=== PATIENT | female | born 1945 | race Caucasian/White ===

== ENCOUNTER 2016-10-24 07:55 | Day surgery (SDC) | payer MEDICARE ==
--- NOTE | 2016-10-21 07:25 | HP ---
PREOPERATIVE HISTORY AND PHYSICAL: DATE OF SURGERY/ADMISSION: 10/24/16 [facility] PROCEDURE: Right wrist carpal tunnel release. CHIEF COMPLAINT: Numbness and tingling in the right hand. HISTORY OF PRESENT ILLNESS: This is a 71-year-old female who had a right carpal tunnel release done in the past. During the past, she had complete relief of her symptoms, but in July she started having an increase in her symptoms again. She has been working part-time at [employer] and does a lot of heavy lifting of water and bags of dog food and feels like this is exacerbating her symptoms. Her hand is very sensitive to the touch. She has tried using a brace, which does help some but does not fully alleviate her symptoms. She does not recall any specific injury to this hand or wrist. She has recently had a nerve conduction study, which showed recurrent carpal tunnel syndrome of moderate degree on the right. The patient is interested in pursuing surgical intervention at this time in the form of a repeat right wrist carpal tunnel release. PAST MEDICAL HISTORY: 1. Diabetes. 2. Hypertension. PAST SURGICAL HISTORY: Right carpal tunnel release. MEDICATIONS: 1. Vitamin B6 natural 1 tab daily. 2. Metformin HCl 500 mg 2 tabs b.i.d. 3. Mobic 15 mg daily. 4. Potassium gluconate 1 tab daily. 5. Toprol-XL 100 mg daily. 6. Vitamin E 1 tab daily. ALLERGIES: BACTRIM and FUROSEMIDE each causes hives. FAMILY MEDICAL HISTORY: Diabetes, Alzheimer's, heart disease. SOCIAL HISTORY: The patient is employed part-time at [employer]. She quit smoking in November 2015, prior to that she was smoking 3 to 4 cigarettes per day for several years. She denies recreational drug use. She does admit to alcohol use on rare occasion. REVIEW OF SYSTEMS: General: Negative for fevers, chills, or night sweats. No known anesthesia problems. HEENT: Negative for headache, lightheadedness, or syncopal episodes. Integumentary: Negative for abrasions, lesions, or open wounds. Cardiothoracic: Negative for chest pain, palpitations, or edema. Positive for hypertension. Pulmonary: Negative for shortness of breath with exertion, chronic cough or COPD. GI: Negative for nausea, vomiting, diarrhea, constipation or GERD. : Negative for nocturia, urinary frequency, urgency, history of UTIs, or kidney problems. Musculoskeletal: Positive for current complaint. Negative for chronic or intermittent back pain. History of fractures. Neurological: Positive for tingling and numbness in the median nerve distribution right hand. Negative for history of seizure, stroke or epilepsy. Endocrine: Positive for diabetes. Negative for thyroid issues. Hematologic: Negative for easy bruising, anemia, excessive bleeding, or history of DVT. Infectious Disease: Negative for history of MRSA, hepatitic C , or HIV. PHYSICAL EXAMINATION GENERAL: A well-developed, well-nourished 71-year-old female, in no acute distress. VITAL SIGNS: Height 5 feet 4.5 inches, weight 191 pounds. Pulse rate 68, blood pressure 138/68. HEENT: Normocephalic, atraumatic. Pupils are equal, round, and reactive to light and accommodation. Extraocular movements are intact. NECK: Supple. No palpable lymph nodes. Throat is clear. PULMONARY: Lungs are clear to auscultation bilaterally. No wheezes, rales, or rhonchi. CARDIOVASCULAR: Regular rate and rhythm. S1 and S2. No murmurs, rubs, or gallops. No edema. ABDOMEN: Positive bowel sounds. Soft, nontender. NEUROLOGIC: Alert and oriented x3. Cranial nerves II through XII are intact. MUSCULOSKELETAL: On exam of the right hand, she has a positive Tinel's sign at the median nerve and some mild thenar wasting. Decreased strength with some abduction. She is very sensitive in the palm of her hand to light touch. She can flex and extend her fingers well. IMAGING STUDIES: EMG nerve conduction study shows moderate carpal tunnel syndrome on the right. ASSESSMENT: Recurrent carpal tunnel syndrome on the right. PLAN: The patient is scheduled to undergo a right wrist carpal tunnel release with Dr. Bullock on 10/24/16. She will return to the office 10 to 14 postop for followup and suture removal. A prescription for Ultracet was e-scribed to the patient's pharmacy for postoperative pain management. FRANKIE DOUGLAS [id number]/[facility] #: [id number] JULIANNA
[~2016-10-24 07:55] MED LIST: Buffered Lidocaine 1% SYR 3ML* 3 ML/SYR SYRINGE INTRADERM ONE
[2016-10-24] MEDS ORDERED: Lidocaine 1% INJ* 10 MG/ML 30 ML SDV ONE (07:58)
[2016-10-24] MEDS ORDERED: Propofol* 10 MG/ML 20 ML BTL IV PUSH ONE (09:15)
[2016-10-24] MEDS ORDERED: Midazolam* 1 MG/ML 2 ML VIAL (2 MG) ONE (09:15)
[2016-10-24] MEDS ORDERED: fentaNYL* 50 MCG/ML 2 ML VIAL (100 MCG VIAL) ONE (09:15)
[2016-10-24 09:54] VITALS: BP 135/65
--- NOTE | 2016-10-25 00:42 | OP ---
DATE OF OPERATION: 10/24/16 [facility] DATE OF : 49 SURGEON: Margie Bullock MD PATHOLOGY LABORATORY AIDES TEACHER: FRANKIE Zelaya ANESTHESIOLOGIST: Rodney Faustin MD ANESTHESIA: Local MAC. PRE-OP DIAGNOSIS: Right carpal tunnel syndrome, recurrent. POST-OP DIAGNOSIS: Right carpal tunnel syndrome, recurrent. OPERATIVE PROCEDURE: Right carpal tunnel release. ESTIMATED BLOOD LOSS: Zero. TOURNIQUET TIME: 8 minutes. INDICATIONS: Elaine is a 71-year-old female with numbness and tingling in the median nerve distribution of her right hand. She had a carpal tunnel release many, many years ago. Symptoms have returned. She presents for right carpal tunnel release. DESCRIPTION OF PROCEDURE: The patient was brought to the operating room, was given a sedation anesthetic and a local infiltration of 10 cc of 1% plain lidocaine in the palm of her right hand. The skin of her right hand and forearm was prepped and draped in the usual sterile fashion. The hand and forearm were exsanguinated and the tourniquet elevated to 250 mmHg. A longitudinal incision was made in the palm in line with the ring finger. We dissected through the subcutaneous tissue down to the transverse carpal ligament. The ligament was divided sharply with a knife and then more proximally with the scissors. The nerve was carefully dissected away from the surrounding tissue. It was somewhat adherent to the undersurface of the transverse carpal ligament, was carefully dissected and completely freed up. The wound was irrigated and skin edges were reapproximated with 4-0 nylon suture. The wound was dressed with Xeroform, 4x4, Webril, and an Chet wrap. The patient tolerated the procedure well, was brought to the recovery room in good condition. [id number]/[facility] #: [id number] MTDD
== END 2016-10-24 10:18 | disposition home or self-care (01) ==
LOC: OREAST 07:55
PROVIDERS: ATTEND Orthopaedic Surgery
DX: G56.01 Carpal tunnel syndrome, right upper limb (principal); I10 Essential (primary) hypertension; E11.9 Type 2 diabetes mellitus without complications; Z87.891 Personal history of nicotine dependence
CPT/HCPCS: J2250; J2704; J3010

== ENCOUNTER 2016-12-16 09:42 | Day surgery (SDC) | payer MEDICARE ==
--- NOTE | 2016-12-08 19:27 | HP ---
PREOPERATIVE HISTORY AND PHYSICAL: DATE OF ADMISSION/SURGERY: 12/16/16 DATE OF OFFICE VISIT/ENCOUNTER: 12/04/16 ATTENDING SURGEON: Margie Bullock MD PROCEDURE: Left wrist carpal tunnel release. CHIEF COMPLAINT: Numbness and tingling, left hand. HISTORY OF PRESENT ILLNESS: This is a 71-year-old female who had a left carpal tunnel release done in the past. She did have complete relief of her symptoms after that surgery but in July 2016, she started having an increase in the symptoms again. 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 Her hand is very sensitive to the touch. She has tried using a brace which does help some but does not fully alleviate her symptoms. She does not recall any specific injury to this hand. The symptoms have become bothersome enough that she is interested in pursuing surgical intervention at this time in the form of a repeat left wrist carpal tunnel release. She recently had a repeat right carpal tunnel release with Dr. Bullock and has done well with that. PAST MEDICAL HISTORY: 1. Diabetes. 2. Hypertension. PAST SURGICAL HISTORY: 1. Right carpal tunnel release x2. 2. Left carpal tunnel release. MEDICATIONS: 1. Vitamin B6 natural 1 tab daily. 2. Metformin HCl 500 mg 2 tabs b.i.d. 3. Mobic 15 mg daily. 4. Potassium gluconate 1 tablet daily. 5. Toprol-XL 100 mg daily. 6. Vitamin E one tab daily. ALLERGIES: BACTRIM and FUROSEMIDE, each causes hives. FAMILY MEDICAL HISTORY: Diabetes, Alzheimer's, and heart disease. SOCIAL HISTORY: The patient is employed part-time at [employer]. She is a former smoker. She quit smoking in November 2015. Prior to that, she was smoking 3 to 4 cigarettes per day for several years. She denies recreational drug use. She denies alcohol use. REVIEW OF SYSTEMS: General: Negative for fevers, chills, or night sweats. No known anesthesia problems. HEENT: Negative for headache, lightheadedness, or syncopal episodes. Integumentary: Negative for abrasions, lesions, or open wounds. Cardiothoracic: Negative for chest pain, palpitations, or edema. Positive for hypertension. Pulmonary: Negative for shortness of breath with exertion, chronic cough, or COPD. GI: Negative for nausea, vomiting, diarrhea , constipation, or GERD. : Negative for nocturia, urinary frequency, urgency , history of UTIs, or kidney problems. Musculoskeletal: Positive for current complaint. Negative for chronic or intermittent back pain or history of fractures. Neurological: Positive for tingling and numbness in the median nerve distribution of the left hand. Negative for history of seizure, stroke, or epilepsy. Endocrine: Positive for diabetes. Negative for thyroid issues. Hematologic: Negative for easy bruising, anemia, excessive bleeding. No history of DVT. Infectious disease: Negative for history of MRSA, hepatitis C, or HIV. PHYSICAL EXAMINATION GENERAL: Well-developed, well-nourished, 71-year-old female, in no acute distress. VITAL SIGNS: Height 5 feet 4-1/2 inches, weight 191 pounds, pulse rate 68, blood pressure 138/68. HEENT: Normocephalic, atraumatic. Pupils are equal, round, and reactive to light and accommodation. Extraocular movements are intact. Throat is clear. NECK: Supple. No palpable lymph nodes. PULMONARY: Lungs are clear to auscultation bilaterally. No wheezes, rales, or rhonchi. CARDIOVASCULAR: Regular rate and rhythm. S1 and S2. No murmurs, rubs, or gallops. No edema. ABDOMEN: Positive bowel sounds, soft, and nontender. MUSCULOSKELETAL: On exam of the left hand, she has a positive Tinel's sign at the median nerve and some mild thenar wasting. Decreased strength with thumb abduction. She is very sensitive in the palm of the hand to light touch. She has good motion and can flex and extend her fingers well. NEUROLOGICAL: Alert and oriented x3. Cranial nerves II through XII are intact. IMAGING STUDIES: EMG/nerve conduction study shows moderate carpal tunnel syndrome on the left. ASSESSMENT: Recurrent carpal tunnel syndrome on the left. PLAN: The patient is scheduled to undergo a repeat left wrist carpal tunnel release with Dr. Bullock on 12/16/16. She will return to the office 10 to 14 days postop for followup and suture removal. A prescription for Ultracet was e- scribed to the patient's pharmacy for postoperative pain management. FRANKIE DOUGLAS [id number]/[facility] #: [id number] JULIANNA
[~2016-12-16 09:42] MED LIST changes: -Buffered Lidocaine 1% SYR 3ML* 3 ML/SYR SYRINGE INTRADERM ONE; +Buffered Lidocaine 1% SYRIN* 3 ML/SYR SYRINGE INTRADERM ONE; +Famotidine IV* 10 MG/ML 2 ML (20 mg) IV ONE
[2016-12-16] MEDS ORDERED: Lidocaine 1% INJ* 10 MG/ML 30 ML SDV ONE (10:12)
[2016-12-16] MEDS ORDERED: fentaNYL* 50 MCG/ML 2 ML VIAL (100 MCG VIAL) ONE (10:23)
[2016-12-16] MEDS ORDERED: Midazolam* 1 MG/ML 5 ML VIAL (5 MG) ONE (10:23)
[2016-12-16] MEDS ORDERED: Ketorolac INJ* 30 MG/ML 1 ML VIAL ONE (10:24)
[2016-12-16] MEDS ORDERED: Lidocaine 2% PF * 5 ML VIAL ONE (10:24)
[2016-12-16] MEDS ORDERED: Propofol* 10 MG/ML 20 ML BTL IV PUSH ONE (10:24)
[2016-12-16] MEDS ORDERED: Ondansetron INJ* 2 MG/ML VIAL ONE (10:24)
[2016-12-16] MEDS ORDERED: Famotidine IV* 10 MG/ML 2 ML (20 mg) ONE (10:32)
[2016-12-16] MEDS ORDERED: DiMENhydriNATE IV* 50 MG/ML VIAL IV PUSH PRN (11:44)
[2016-12-16] MEDS ORDERED: Acetaminophen TAB* 325 MG PO PRN (11:44)
[2016-12-16] MEDS ORDERED: oxyCODONE TAB* 5 MG TAB PO PRN (11:44)
[2016-12-16 13:09] VITALS: BP 114/53
--- NOTE | 2016-12-17 01:10 | OP ---
DATE OF OPERATION: 12/16/16 [facility] DATE OF : 49 SURGEON: Margie Bullock MD TEMPERATURE INSPECTOR: FRANKIE Zelaya ANESTHESIOLOGIST: Maria Isabel Ward MD ANESTHESIA: Local MAC. PRE-OP DIAGNOSIS: Left carpal tunnel syndrome. POST-OP DIAGNOSIS: Left carpal tunnel syndrome. OPERATIVE PROCEDURE: Left carpal tunnel release. ESTIMATED BLOOD LOSS: Zero. TOURNIQUET TIME: 5 minutes. INDICATIONS: Melissa is a 71-year-old female, who had a left carpal tunnel release done many years ago. She has recurrent symptoms and now presents for left carpal tunnel release. DESCRIPTION OF PROCEDURE: The patient was brought to the operating room and was given a sedation anesthetic and a local infiltration of 10 cc of 1% plain lidocaine in the palm of her left hand. The skin of her left hand and forearm was prepped and draped in the usual sterile fashion. The hand and forearm were exsanguinated and the tourniquet elevated to 250 mmHg. A longitudinal incision was made in the palm in line with the ring finger, dissected through the subcutaneous tissue, down to the transverse carpal ligament. The ligament was divided sharply with the knife and then more proximally with the scissors. The nerve was dissected free from surrounding tissue and there was an area of moderate compression in the mid portion of the ligament. The wound was irrigated and the skin edges were reapproximated with 4-0 nylon sutures. The wound was dressed with Xeroform, 4x4, Webril, and an Chet wrap. The patient tolerated the procedure well and was brought to the recovery room in good condition. Of note, there was abundant scarring around the nerve. This was carefully dissected away from the nerve. [id number]/[facility] #: [id number] [facility]
== END 2016-12-16 13:20 | disposition home or self-care (01) ==
LOC: OREAST 09:42
PROVIDERS: ATTEND Orthopaedic Surgery
DX: G56.02 Carpal tunnel syndrome, left upper limb (principal); E11.8 Type 2 diabetes mellitus with unspecified complications; Z79.84 Long term (current) use of oral hypoglycemic drugs; I10 Essential (primary) hypertension; Z87.891 Personal history of nicotine dependence
CPT/HCPCS: J1885; J2001; J2250; J2405; J2704; J3010

== ENCOUNTER 2017-03-03 09:58 | Day surgery (SDC) | payer MEDICARE ==
--- NOTE | 2017-02-16 17:55 | HP ---
PREOPERATIVE HISTORY AND PHYSICAL: DATE OF SURGERY/ADMISSION: 03/03/17 [facility] DATE OF OFFICE VISIT/ENCOUNTER: 02/12/17 ATTENDING SURGEON: Margie Bullock MD (DICTATED BY FRANKIE DOUGLAS) PROCEDURE: Right long finger trigger finger release. CHIEF COMPLAINT: Right long finger triggering. HISTORY OF PRESENT ILLNESS: This is a 71-year-old female who has had catching, clicking, and triggering in the right middle finger for a couple of months now. She did receive a cortisone injection, but unfortunately that helped only for a few days and the triggering returned. It is quite bothersome at this point, and she would like to proceed with a surgical intervention to correct this problem. PAST MEDICAL HISTORY: 1. Diabetes. 2. Hypertension. PAST SURGICAL HISTORY: 1. Right carpal tunnel release x2. 2. Left carpal tunnel release x2. MEDICATIONS: 1. Vitamin B6 natural 1 tab daily. 2. Metformin HCl 500 mg 2 tabs b.i.d. 3. Mobic 15 mg daily. 4. Potassium gluconate 1 tablet daily. 5. Toprol-XL 100 mg daily. 6. Vitamin E 1 tab daily. ALLERGIES: BACTRIM and FUROSEMIDE, each caused hives. FAMILY MEDICAL HISTORY: Diabetes, Alzheimer's, and heart disease. SOCIAL HISTORY: The patient is employed part-time at [employer], although she has not been working recently secondary to carpal tunnel syndrome and now the trigger finger. She is a former smoker. She quit smoking in November 2015, prior to that she was smoking 3 to 4 cigarettes per day for several years. She denies recreational drug use. She denies alcohol use. REVIEW OF SYSTEMS: General: Negative for fevers, chills, or night sweats. No known anesthesia problems. HEENT: Negative for headache, lightheadedness, or syncopal episodes. Integumentary: Negative for abrasions, lesions, or open wounds. Cardiothoracic: Positive for hypertension. Negative for chest pain, palpitations, or edema. Pulmonary: Negative for shortness of breath with exertion, chronic cough, or COPD. GI: Negative for nausea, vomiting, diarrhea , constipation, or GERD. : Negative for nocturia, urinary frequency, urgency , history of UTIs, or kidney problems. Musculoskeletal: Positive for current complaints. Negative for chronic or intermittent back pain or history of fractures. Neurological: Negative for history of seizure, stroke, or epilepsy ; negative for paresthesias or numbness. Endocrine: Positive for diabetes. Negative for thyroid issues. Hematologic: Negative for easy bruising, anemia, excessive bleeding, or history of DVT. Infectious Disease: Negative for history of MRSA, hepatitis C, or HIV. PHYSICAL EXAMINATION GENERAL: Well-developed, well-nourished 71-year-old female in no acute distress. VITAL SIGNS: Height 5 feet 4-1/2 inches, weight 191 pounds, pulse rate 68, blood pressure 119/81. HEENT: Normocephalic, atraumatic. Pupils are equal, round, and reactive to light and accommodation. Extraocular movements are intact. Throat is clear. NECK: Supple. No palpable lymph nodes. PULMONARY: Lungs are clear to auscultation bilaterally. No wheezes, rales, or rhonchi. CARDIOVASCULAR: Regular rate and rhythm. S1, S2. No murmurs, rubs, or gallops. No edema. ABDOMEN: Positive bowel sounds, soft, nontender. MUSCULOSKELETAL: On exam of her right hand and long finger, there is no visible swelling, ecchymosis, or erythema. She has tenderness to palpation at the A1 michael of the right long finger. She has full extension but difficulty closing the finger into a tightly flexed position and there is triggering as she lifts through motion. NEUROLOGIC: Neurovascular function is intact. IMPRESSION: Right long finger trigger finger. PLAN/RECOMMENDATIONS: The patient is scheduled to undergo a right long finger trigger finger release with Dr. Bullock on 03/03/17. She will return to the office 10 to 14 days postop for followup and suture removal. Prescription for Ultracet was e-scribed to the patient's pharmacy for postoperative pain management. FRANKIE DOUGLAS [id number]/[facility] #: [id number] JULIANNA
[~2017-03-03 09:58] MED LIST changes: +Buffered Lidocaine 0.9% SYRIN* 5 ML/SYR SYRINGE INTRADERM ONE; -Buffered Lidocaine 1% SYRIN* 3 ML/SYR SYRINGE INTRADERM ONE; -Famotidine IV* 10 MG/ML 2 ML (20 mg) IV ONE
[2017-03-03] MEDS ORDERED: Buffered Lidocaine 0.9% SYRIN* 5 ML/SYR SYRINGE ONE (10:36)
[2017-03-03] MEDS ORDERED: Metoprolol Succinate XL TAB* 25 MG ONE (10:53)
[2017-03-03] MEDS ORDERED: Metoprolol Succinate XL TAB* 50 MG ONE (10:53)
[2017-03-03] MEDS ORDERED: Lidocaine 1% INJ* 10 MG/ML 30 ML SDV ONE (11:21)
[2017-03-03] MEDS ORDERED: Propofol* 10 MG/ML 20 ML BTL IV PUSH ONE (11:56)
[2017-03-03] MEDS ORDERED: Ibuprofen TAB* 600 MG ONE (12:15)
[2017-03-03 12:17] VITALS: BP 148/60
--- NOTE | 2017-03-04 03:03 | OP ---
DATE OF OPERATION: 03/03/17 [facility] DATE OF : 49 SURGEON: Margie Bullock MD ELECTRIC METER REPAIRER HELPER: FRANKIE Zelaya ANESTHESIOLOGIST: Basilio Perkins DO ANESTHESIA: Local MAC. PRE-OP DIAGNOSIS: Right long finger trigger finger. POST-OP DIAGNOSIS: Right long finger trigger finger. OPERATIVE PROCEDURE: Right long finger trigger release. ESTIMATED BLOOD LOSS: Zero. TOURNIQUET TIME: 5 minutes. INDICATIONS FOR PROCEDURE: Melissa is a 71-year-old female with painful locking of her right long finger. She presents for trigger release. DESCRIPTION OF PROCEDURE: The patient was brought to the operating room, was given a sedation anesthetic and a local infiltration of 10 cc of 1% plain lidocaine in the palm of her right hand. The skin of her right hand and forearm was prepped and draped in the usual sterile fashion. The hand and forearm were exsanguinated and the tourniquet elevated to 250 mmHg. A transverse incision was made centered over the A1 michael of the right long finger. We dissected bluntly through the subcutaneous tissue. The digital neurovascular bundles were protected by the surgical instrument mechanic, Gena Sanford. The A1 michael was incised longitudinally completely releasing the tendons, which were in good condition. The wound was irrigated and skin edges were reapproximated with 4-0 nylon suture. The wound was dressed with Xeroform, 4x4 , Webril, and Chet wrap. Patient tolerated the procedure well and was brought to the recovery room in good condition. [id number]/[facility] #: [id number] MTDD
== END 2017-03-03 12:43 | disposition home or self-care (01) ==
LOC: OREAST 09:58
PROVIDERS: ATTEND Orthopaedic Surgery
DX: M65.331 Trigger finger, right middle finger (principal); I10 Essential (primary) hypertension; E11.9 Type 2 diabetes mellitus without complications; Z79.84 Long term (current) use of oral hypoglycemic drugs; Z87.891 Personal history of nicotine dependence
CPT/HCPCS: A9270-GY; J2001; J2704

== ENCOUNTER 2017-04-03 08:05 | Day surgery (SDC) | payer MEDICARE ==
[~2017-04-03 08:05] MED LIST changes: +Dexamethasone IV* 4 MG/ML 1 ML (4 MG) IV SLOW PU ONE; +Dexamethasone IV* 4 MG/ML 1 ML (4 MG) ONE; +Famotidine IV* 10 MG/ML 2 ML (20 mg) IV ONE; +Famotidine IV* 10 MG/ML 2 ML (20 mg) ONE; +Lidocaine 1% INJ* 10 MG/ML 30 ML SDV ONE
[2017-04-03] MEDS ORDERED: Ondansetron INJ* 2 MG/ML VIAL ONE (10:22)
[2017-04-03] MEDS ORDERED: Midazolam* 1 MG/ML 5 ML VIAL (5 MG) ONE (10:22)
[2017-04-03] MEDS ORDERED: Propofol* 10 MG/ML 20 ML BTL IV PUSH ONE (10:22)
[2017-04-03] MEDS ORDERED: Ketorolac INJ* 30 MG/ML 1 ML VIAL ONE (10:22)
[2017-04-03] MEDS ORDERED: oxyCODONE/Acetamin 5/325 MG* TAB PO PRN (10:43)
[2017-04-03 11:22] VITALS: BP 138/67
--- NOTE | 2017-04-04 01:09 | OP ---
DATE OF OPERATION: 04/03/17 [facility] DATE OF : 49 SURGEON: Margie Bullock MD CAMPUS [place]: FRANKIE Zelaya ANESTHESIOLOGIST: Jann Garcia MD ANESTHESIA: Local MAC. PRE-OP DIAGNOSIS: Left long finger trigger finger. POST-OP DIAGNOSIS: Left long finger trigger finger. OPERATIVE PROCEDURE: Left long finger trigger release. ESTIMATED BLOOD LOSS: Zero. TOURNIQUET TIME: 5 minutes. INDICATIONS FOR PROCEDURE: Melissa is a 71-year-old female who has clicking and locking of her left middle finger. She presents for trigger finger release. DESCRIPTION OF PROCEDURE: The patient was brought to the operating room, was given a sedation anesthetic and a local infiltration of 10 cc of 1% plain lidocaine in the palm of her right hand. Skin of her right hand and forearm was prepped and draped in the usual sterile fashion. The hand and forearm were exsanguinated and the tourniquet elevated to 250 mmHg. A transverse incision was made centered over the A1 michael of the left middle finger. We dissected bluntly through the subcutaneous tissue down to the flexor tendon sheath. The A1 michael was incised longitudinally completely releasing the flexor tendons, which were in good condition. The wound was irrigated and skin edges reapproximated with 4-0 nylon suture. The wound was dressed with Xeroform, 4x4 , Webril, and an Chet wrap. The patient tolerated the procedure well and brought to the recovery room in good condition [id number]/[facility] #: [id number] MTDD
== END 2017-04-03 11:34 | disposition home or self-care (01) ==
LOC: OREAST 08:05
PROVIDERS: ATTEND Orthopaedic Surgery
DX: M65.332 Trigger finger, left middle finger (principal); E11.9 Type 2 diabetes mellitus without complications; Z79.84 Long term (current) use of oral hypoglycemic drugs; Z87.891 Personal history of nicotine dependence
CPT/HCPCS: J1100; J1885; J2001; J2250; J2405; J2704